=== PATIENT | female | born 2005 ===

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

== ENCOUNTER → 2025-07-26 14:06 | Outpatient (CLI) | payer OTHER, SELFPAY ==
--- NOTE | 2025-07-26 14:10 | DI.RAD_ITS ---
Exam(s) XR ANKLE LT COMPLETE EXAM: XR ANKLE LT COMPLETE CLINICAL HISTORY: left ankle pain after fall,m25.572 TECHNIQUE: 2D digital imaging was performed. Three views. COMPARISON: No exams were available for comparison FINDINGS: BONES: No acute fracture is present. No bony destructive lesion is seen. JOINTS:The ankle mortise is normally aligned. SOFT TISSUE: Swelling below the lateral malleolus. IMPRESSION: Soft tissue swelling. No fracture or ankle mortise widening. DATA REPOSITORY: RADIATION DOSE DELIVERED:
== END ==
LOC: DI 14:06
PROVIDERS: PCP Nurse Practitioner Family; Visit Provider Student in an Organized Health Care Education/Training Program
DX: M25.572 Pain in left ankle and joints of left foot (principal)
CPT/HCPCS: 73610